=== PATIENT | male | born 1955 | race Caucasian/White ===

== ENCOUNTER 2017-10-08 09:49 | Emergency (ER) | payer MEDICAID, OTHER ==
[2017-10-08 09:55] VITALS: TEMP 98.4
--- NOTE | 2017-10-08 10:40 | EDPHY ---
H & P Stated Complaint: Frequency, hematuria, back pain Time Seen by Provider: 10/08/17 09:59 HPI/ROS: CHIEF COMPLAINT: Intermittent hematuria, urinary frequency, back pain HISTORY OF PRESENT ILLNESS: The patient has remote history of nephrolithiasis. He presents to the emergency department with several weeks of intermittent hematuria. The patient is also had some back pain. The patient denies fever, vomiting or additional complaints. The patient states he has improved since arriving in the emergency department. The patient does have a history of bipolar mood disorder which is currently well controlled. REVIEW OF SYSTEMS: A comprehensive 10 point review of systems is otherwise negative aside from elements mentioned in the history of present illness. Source: Patient Exam Limitations: No limitations - Medical/Surgical History Hx Asthma: No Hx Chronic Respiratory Disease: No Hx Diabetes: No Hx Cardiac Disease: No Hx Renal Disease: No Hx Cirrhosis: No Hx Alcoholism: No Hx HIV/AIDS: No Hx Splenectomy or Spleen Trauma: No Other PMH: VASECTOMY/KIDNEY STONES - Social History Smoking Status: Never smoked - Physical Exam Exam: General Appearance: Alert, no distress Eyes: Pupils equal and round no pallor or injection ENT, Mouth: Mucous membranes moist Respiratory: There are no retractions, lungs are clear to auscultation Cardiovascular: Regular rate and rhythm Gastrointestinal: Abdomen is soft and nontender, no masses, bowel sounds normal Back: Mild right CVA tenderness Neurological: A&O, normal motor function, normal sensory exam, normal cranial nerves Skin: Warm and dry, no rashes Musculoskeletal: Neck is supple nontender Extremities: symmetrical, full range of motion Constitutional: Initial Vital Signs Temperature (C) 36.9 C 10/08/17 09:52 Heart Rate 84 10/08/17 09:52 Respiratory Rate 16 10/08/17 09:52 Blood Pressure 107/83 H 10/08/17 09:52 O2 Sat (%) 97 10/08/17 09:52 O2 Delivery Mode Room Air Allergies/Adverse Reactions: Sulfa (Sulfonamide Antibiotics) Allergy (Verified 08/13/15 19:13) Home Medications: Medication Instructions Recorded levOFLOXACIN [Levaquin] 500 mg PO DAILY #10 tab 10/08/17 Medical Decision Making - Diagnostics Imaging Results: Imaging Impressions Abdomen/Pelvis CT 10/08/17 10:39 Impression: No anatomic recommendation for hematuria identified in this noncontrast scan. Findings and recommendations discussed with Heraclio Brownlee at 11:32 AM hour, 10/08/2017. Final report concurs with initial preliminary interpretation. Attention: This examination does not use radiographic contrast, and as such, provides only a limited evaluation of the abdomen, pelvis, and retroperitoneum. If there is further clinical suspicion for pathological conditions, a complete CT evaluation of the abdomen and pelvis utilizing intravenous, oral, and rectal contrast should be considered. ED Course/Re-evaluation: The patient presents to the ED for evaluation of back pain, urinary frequency and hematuria. The patient does have a history of nephrolithiasis. The patient has been having symptoms of frequency and dysuria over the past several weeks. The patient denies any complaints of acute abdominal pain. He had minimal tenderness on exam. The patient was taken for CT scan of the abdomen pelvis which demonstrates no evidence of obvious nephro or ureterolithiasis. The patient has a normal size prostate noted on that study. The patient is noted to have pyuria. A urine culture has been obtained. The patient is nontoxic and well-appearing without pyelonephritis. The patient will be put on Levaquin for the next 10 days. I am question whether he may have a low level of prostatitis given his urinary complaints. I would like the patient to follow up with our on-call urologist for a office based appointment in the next several weeks. The patient should return to the ED for any increasing pain, vomiting or other concerns. Differential Diagnosis: Differential diagnosis considered includes prostatitis, nephrolithiasis, ureterolithiasis, pyelonephritis, cystitis - Data Points Laboratory Results: Laboratory Results 10/08/17 11:10 10/08/17 11:10 10/08/17 10/08/17 10/08/17 11:10 11:10 10:30 WBC 10.25 10^3/uL H 10^3/uL (3.80-9.50) RBC 4.63 10^6/uL 10^6/uL (4.40-6.38) Hgb 14.9 g/dL g/dL (13.7-17.5) Hct 42.9 % % (40.0-51.0) MCV 92.7 fL fL (81.5-99.8) MCH 32.2 pg pg (27.9-34.1) MCHC 34.7 g/dL g/dL (32.4-36.7) RDW 12.6 % % (11.5-15.2) Plt Count 211 10^3/uL 10^3/uL (150-400) Sodium 140 mEq/L mEq/L (135-145) Potassium 4.2 mEq/L mEq/L (3.5-5.2) Chloride 103 mEq/L mEq/L (97-110) Carbon Dioxide 27 mEq/l mEq/l (22-31) Anion Gap 10 mEq/L mEq/L (8-16) BUN 21 mg/dL mg/dL (7-23) Creatinine 1.3 mg/dL mg/dL (0.7-1.3) Estimated GFR 56 Glucose 88 mg/dL mg/dL (70-100) Calcium 9.6 mg/dL mg/dL (8.5-10.4) Urine Color PALE YELLOW Urine Appearance CLEAR Urine pH 7.0 (5.0-7.5) Ur Specific Sherwood 1.005 (1.002-1.030) Urine Protein NEGATIVE (NEGATIVE) Urine Ketones NEGATIVE (NEGATIVE) Urine Blood 2+ H (NEGATIVE) Urine Nitrate NEGATIVE (NEGATIVE) Urine Bilirubin NEGATIVE (NEGATIVE) Urine Urobilinogen NEGATIVE EU EU (0.2-1.0) Ur Leukocyte Esterase 3+ H (NEGATIVE) Urine RBC 1-3 /hpf /hpf (0-3) Urine WBC 25-50 /hpf H /hpf (0-3) Ur Epithelial Cells NONE SEEN /lpf /lpf (NONE-1+) Urine Mucus TRACE /lpf /lpf (NONE-1+) Urine Glucose NEGATIVE (NEGATIVE) Departure - Departure Disposition: Home, Routine, Self-Care Clinical Impression: Prostatitis Condition: Good Instructions: Prostatitis (ED) Additional Instructions: 1. Please take antibiotics as directed for next 10 days. 2. You have no evidence of an obvious kidney stone but do have evidence of a bladder infection. This may be caused by some irritation of your prostate. 3. Please schedule a follow-up appointment with your primary care provider. I do recommend scheduling a follow-up appointment with urologist you have been referred to for a recheck in the next 1-2 weeks. 4. Please return to the ED for inability to urinate, high fever, increasing pain , vomiting or other concerns. Referrals: Lisa Griffith PA [Primary Care Provider] - As per Instructions Odalis Hubbard MD [Medical Doctor] - As per Instructions Prescriptions: levOFLOXACIN [Levaquin] 500 mg PO DAILY #10 tab
[2017-10-08 12:22] VITALS: BP 124/75; PULSE 69; RESP 18; O2SAT 96
== END 2017-10-08 12:19 | disposition home or self-care (01) ==
DX: N41.9 Inflammatory disease of prostate, unspecified (principal); B96.89 Other specified bacterial agents as the cause of diseases classified elsewhere

== ENCOUNTER → 2017-11-25 | Outpatient (CLI) | payer MEDICAID | LOC: FIMAGING 07:37 | PROVIDERS: ATTEND Physician Assistant Medical | DX: R41.3 Other amnesia (principal); F31.30 Bipolar disorder, current episode depressed, mild or moderate severity, unspecified; S06.0X9A Concussion with loss of consciousness of unspecified duration, initial encounter ==

== ENCOUNTER 2018-04-25 15:56 | Emergency (ER) | payer MEDICAID ==
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
[2018-04-25 17:19] VITALS: BP 137/84
== END 2018-04-25 17:19 | disposition home or self-care (01) ==
DX: R41.82 Altered mental status, unspecified (principal); R26.89 Other abnormalities of gait and mobility

== ENCOUNTER 2018-05-09 22:34 | Inpatient (IN) | payer MEDICAID, OTHER ==
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
[2018-05-09 23:34] LABS: PLATELET COUNT 214 10^3/uL (150-400)
[2018-05-10] MEDS ORDERED: LORazepam 1 MG TAB PO ONE (00:54)
[2018-05-10] MEDS ORDERED: ACETAMINOPHEN 500 MG TAB PO ONE (05:40)
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
--- NOTE | 2018-05-10 09:20 | ASMTTCLDSP ---
TLC Discharge Disposition Disposition: Answers: Admit Disposition Notes: Notes: Admit 3N. Discharge Concerns/Recommendations: Notes: In consultation with [facility] ED physician, Solange Warner MD and on-call psychiatrist, Renate Cutler MD, both concurred that pt appears to meet 27-65 criteria requiring psychiatric hospitalization as pt appears to be at risk of harm to self due to a mental illness condition. Pt was given the 3N prohibited belongings list while in the ED. Was patient given the Answers: Yes Inpatient Behavioral Health Prohibited Belongings List while in the ED? For inpatient Renate Cutler MD admission, the following psychiatrist agreed to accept patient for admission to Behavioral Health ([facility]): Type of Hold: Answers: M1/72-hour Hold Hold initiated by: Answers: ED Physician Date Signed: 05/10/2018 09:20 AM Electronically Signed By:Carlos Alberto Chan
[2018-05-10] MEDS ORDERED: MAG HYDROX/AL HYDROX/SIMETH 30 ML UDCUP PO PRN (13:53)
[2018-05-10] MEDS ORDERED: MAGNESIUM HYDROXIDE 30 ML UDCUP PO PRN (13:53)
[2018-05-10] MEDS ORDERED: NICOTINE POLACRILEX 2 MG GUM B PRN (13:53)
[2018-05-10] MEDS ORDERED: ACETAMINOPHEN 325 MG TAB PO PRN (13:53)
[2018-05-10] MEDS ORDERED: LORazepam 0.5 MG TAB PO PRN (13:53)
--- NOTE | 2018-05-10 14:06 | BCON ---
INTERNAL MEDICINE CONSULTATION DATE OF CONSULTATION: 05/10/2018 REFERRING PHYSICIAN: Renate Cutler MD REASON FOR REFERRAL: Medical clearance for inpatient behavioral health stay. HISTORY OF PRESENT ILLNESS: This patient came to the emergency department yesterday with his daughter and son. He had paranoia. He was homeless. He was evaluated by the mental health team and admitted for further psychiatric care. Today, he discusses his concern about having seizures. He describes these as periods of increased mental activity and anxiety, which can last up to 6 hours, following which, he has a decrease in mental activity and says he feels lightheaded and with impaired balance and needs to sit down. He reports he was given and risperidone by primary care provider 1 mg per day, which he took for 10 days and while he was taking it, these episodes were not happening to him. He is also concerned that he has loss of balance and difficulty moving the left side of his body, and he says that his sense of time has changed, and he gets much more involved in details and loses track of time. 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 He is, otherwise, without any acute complaints. PAST MEDICAL HISTORY: 1. Kidney stones. 2. Left hydrocele. 3. Prostatitis. 4. ADHD. 5. Bipolar disorder. MEDICATIONS: 1. Vyvanse 10 mg p.o. daily. 2. Lamotrigine 250 mg p.o. daily. 3. Gabapentin 200 mg p.o. t.i.d. 4. Recent prescription for risperidone 1 mg daily, which has run out. SOCIAL HISTORY: He is . He has 2 local children. He has a degree in geology. 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 He is a nonsmoker. He does not use alcohol. FAMILY HISTORY: Noncontributory, though he reported a history of mental health issues and Alzheimer disease. REVIEW OF SYSTEMS: He reports he had considerable weight gain recently in the past year, but he put himself on a ketogenic diet with very low carbohydrate intake, which resulted in considerable weight loss. He says he has a normal appetite. Otherwise, a 10-point review of systems is negative. PHYSICAL EXAM: VITAL SIGNS: Blood pressure is 118/76, heart rate is 75, respiratory rate is 14, oxygen saturation is 95% on room air, temperature is 36.6 degrees centigrade. His weight is 68 kg for a body mass index of 22.2. GENERAL: This is a well-nourished, well-developed man, appears his chronologic age cooperative and in no acute distress. HEENT: Extraocular movements are intact. Pupils are equal, round, and reactive to light. Mucous members are moist. Dentition is in good condition. He has an uncrowded airway, Mallampati class 1. NECK: Supple. HEART: Regular rate and rhythm with no murmurs, rubs , or gallops. LUNGS: Clear to auscultation bilaterally. ABDOMEN: Benign. NEUROLOGIC: He is alert and oriented x3. He is verbose. He has full faces. Cranial nerves 2-12 are grossly intact. There is no focal weakness. Sensation is intact to light touch. Deep tendon reflexes are 2+ bilaterally at the biceps , patellar, and Achilles tendons. There is no pronator drift. There is no rigidity. There is no bradykinesia, and gait is within normal limits. LABORATORY STUDIES: From the emergency department: CBC was completely within normal limits. Serum chemistry revealed normal renal function and electrolytes. There was a mild elevation of glucose at 114, but this was likely not fasting. Toxicology screen in the serum was negative for ethyl alcohol and the urine was non-negative for marijuana, but otherwise negative for substances of abuse. ASSESSMENT/RECOMMENDATIONS: 1. Mental health issues. Pending further evaluation and management per Psychiatry and the mental health team. 2. Transient alterations of consciousness. These do not seem consistent with seizures. He has an EEG scheduled for this Sunday, May 13, 2018, and I think it is important that he goes to that appointment as the EEG result will help clarify his question regarding seizures. He has had normal MRI x2. 3. Question of movement disorder. He does not appear to have any movement disorder on my exam. After his EEG, it would be reasonable for him to follow up with Neurology regarding both the question of seizure and the question of movement disorder. It seems likely to me that these may be psychogenic symptoms that would improve with stabilization of his psychiatric condition. Will order orthostatic blood pressure and pulse X 1 and PRN symptoms. 4. Recent weight loss. He reports this is volitional, but given weight loss and possible exacerbation of bipolar disorder, I will add a TSH onto the labs that were drawn in the emergency department to rule out thyroid abnormality contributing to his symptoms. I see no medical contraindications to this patient's continued stay on the inpatient behavioral health unit or to any psychiatric medications or procedures. Thank you very much for including me in the care of this patient and please do not hesitate to contact me or the hospitalist service should there be need for further medical evaluation. /[id number]/MODL MTDD
--- NOTE | 2018-05-10 14:54 | PDMN ---
Medical Necessity Medical necessity: Pt meets IP criteria per MD and [facility]; est los > 2 mn for eval and tx of Bipolar I with psychotic features; pt on M1 hold requiring further monitoring, safety, crisis stabilization, med management. Hx homelessness Per CM consult and order 05/10/18
[2018-05-10] MEDS ORDERED: risperiDONE 0.5 MG TAB PO PRN (17:18)
[2018-05-10] MEDS ORDERED: risperiDONE 1 MG TAB PO SCH (21:00)
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
--- NOTE | 2018-05-11 11:50 | ASMTBHMTP ---
Master Treatment Plan Master Treatment Plan Answers: Impaired Reality for: Date: 05/11/2018 Diagnosis on Admission: Bipolar I Disorder, current or most recent episode manic, with psychotic features 296.54 (F31.5) Expected length of stay: 5-7 Reason for admission: Notes: The patient reported that he "ran out" of his Risperidone on a trip to the [facility]. 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 The patient was utilizing his benefit of staying in the [facility] lodge near [place], [place]. The patient reported that he purchased and used CBD oil to substitute for his Risperidone. He returned to [place] and met with his family at his son's home. The patient's children and ex- were concerned about his paranoid ideation and supported him in coming to [facility] ED for further evaluation. The patient reported that he was being followed and that someone is trying to murder him; he feared that he may have endangered his family by coming to their home. Patient's stated presenting problems: Notes: The patient reoprted that he has seizures in which "time blocks out" and he can't remember. The patient referred to this as an "instantaneous black out" and stated that it "erases periods of memory." The patient stated that he felt like he had been on [facility] for "a week;" the patient was admitted yesterday [05/10/18]. The patient reported a diagnostic history of Bipolar Disorder. The patient is treated outpatient by [facility]. Patient's goals for treatment: Notes: The patient stated, "To be released." Patient's strengths: Notes: The patient stated, "My perception of mylsef in context of where I am and what's going on." Identify supports outside of hospital: Notes: The patient is supported by his family including his daughter, Mercy, his son, Dante, and his ex-. He reported having relatives and friends in in the area as well. Discharge criteria: Notes: Psychotic symptoms will be reduced or eliminated with return to baseline functioning in affect, thinking, and behavior prior to discharge. Initial disposition plan/considerations: Notes: The patient plans to return to his home and job at [employer] in [place], [place] upon discharge. Master Treatment Plan Required Signatures Psychiatrist signature: Answers: Renate Cutler MD: RN on-shift signature: Answers: RN: Patient signature: Answers: Patient: Date Signed: 05/11/2018 11:49 AM Electronically Signed By:Alethea Murguia
--- NOTE | 2018-05-11 12:15 | SOAPPROG ---
SOAP Progress Note Assessment/Plan: Assessment: 62yo with BMD since , incr manic over past month with psychosis/paranoia prior to admission. reports med compliant until couple days prior to admission and used CBD oil. Utox +THC. this is his first psychiatric hospitalization Plan: 05/11/18 12:16 Pt seen in treatment planning today, reports very appreciative of being brought to hospital by his son and daughter who really care about him. States no problems with restarting Risperdal. Had run out of his medications a couple of days before admission, including Gabapentin, Lamictal, and Risperdal, also had obtained CBD oil in the meantime since out of meds. Reports occasionally having seizures, which have variably been described as questionably mental health in origin (racing thoughts so fast, then slowed to point of not being able to answer/respond to others and losing time) but also as questionably neurologic and has outpatient work-up in progress, reporting scheduled for EEG at end of this week, and that his understanding was that his seizures were not typical. Discussed medication options and need to resume mood stabilizer. Denies s/e to Risperdal 1mg hs. MSE: Casually dressed, readily engaging, smiling, good eye contact, speech articulate. Was with incr rate speech but not pressured and not uninterruptible. + overinclusive with detail, and affect was hypomanic, very bright, optimistic, appreciative, complimentary. Mood "good", affect full. Denies any AH/VH, did not express delusional thoughts or any paranoia. Denied any SI or thoughts to harm others. Expressed good insight into having BMD and needing medications. Cognition intact. Talked of his several manic sxs over the years, including getting involved with relationships during those times, "and my children were a product of manic episiodes, they know that". Added that his sister is also in treatment with same psychiatrist for Bipolar mood and stable on Depakote, Geodon, and he manages her finances. Admits he bought a $35K car prior to admission, " my daughter tells me every time I get manic I buy a new car". Pt reports 2 years stable on Lamictal and Gabapentin, and that he asked PCP for Risperdal 1mg to be restarted a couple of weeks ago for emerging manic sxs. Does maintain he still wants to continue with CBD for his michelle and what he thinks are seizure symptoms. Has taken Depakote in the past. took for 1 yr in 2012, but states he got depressed and stayed depressed after going off it. does not know dose of if he was in therapeutic range. denied having any other adverse effects. admits feeling his symptoms feel more like rapid cycling in recent years. PLAN: -agreed to start Depakote ER 1000mg tonight. risks/benefits reviewed. pt consented to treatment. has been on it in 2013, not sure of dose. sister stable on this med he states, and likes that it is also and antiepileptic med. -wants to not take Risperdal scheduled if starting Depakote. thinks it gave him a headache this am. Will change to 0.5mg bid prn, but schedule if with any evidence of psychosis -gave permission to call PCP and outpt psychiatrist Dr. Salinas for collateral. -cont M-1 Objective: Vital Signs Temp Pulse Resp BP Pulse Ox 36.5 C 79 16 121/78 H 95 05/11/18 06:00 05/11/18 06:00 05/11/18 06:00 05/11/18 06:00 05/11/18 06:00 - Pending Discharge Pending Discharge Within 24 Hours: No Pending Discharge Within 48 Hours: No ICD10 Worksheet Patient Problems: Problems Problem Status Onset Bipolar disorder Acute
[2018-05-11] MEDS ORDERED: risperiDONE 0.5 MG TAB PO PRN (16:28)
[2018-05-11] MEDS ORDERED: LORazepam 2 MG/ML INJ IM PRN (20:35)
[2018-05-11] MEDS ORDERED: OLANZapine 10 MG/2 ML VIAL IM PRN (20:35)
--- NOTE | 2018-05-11 20:47 | PDCONSULT ---
Fish Pitcher Note: MD electronics repair technician was alerted to fact that patient became aggressive, hostile and threatening toward staff and peers during group therapy tonight. Staff attempted to redirect and de-escalate patient, however, he refused to cooperate with staff and started verbally threatening staff and swinging his arms at staff per report. Staff had to physically manage patient and remove him from group room to seclusion room. MD ordered E-meds including Olanzapine 10mg PO QHS with IM PRN if patien refuses PO, as well as Ativan 1mg PO BID with IM PRN if patient refuses PO. Patient also has Depakote 1,000mg QHS ordered which he refused to take tonight per staff.
[2018-05-11] MEDS ORDERED: OLANZapine DISINTEGR 10 MG TAB PO SCH (21:00)
[2018-05-11] MEDS ORDERED: DIVALPROEX ER 500 MG TAB PO SCH (21:00)
[2018-05-11] MEDS: LORazepam 1 MG TAB PO SCH (21:19)
[2018-05-12] MEDS: LORazepam 1 MG TAB PO SCH (08:20)
--- NOTE | 2018-05-12 11:35 | ASMTCMCOM ---
CM Note CM Note Notes: According to [facility] staff, the patient was secluded in the evening 05/11/18. He reported that he misperceived a statement from staff. The patient has been observed expressing his resistance to treatment in the milieu to staff and peers. He slept 6.5 hours overnight and completed 50% or more of his meals on 05/11/18. He refused his scheduled medication: Depakote. Date Signed: 05/12/2018 11:34 AM Electronically Signed By:Alethae Murguia
--- NOTE | 2018-05-12 15:37 | ASMTBHDC ---
Notes Note: Notes: CC tentatively set up [facility] appt for client (date and time can be changed) Follow up with: [facility] [address] [place] [address] ([address] Floor) [place] [address] Coordinate Appt: WednesdayMay 18 (05/18/18) at 2:30pm with Shayy. Date Signed: 05/12/2018 03:36 PM Electronically Signed By:Anthony Hernandez
[2018-05-12] MEDS: DIVALPROEX ER 500 MG TAB PO SCH ×2 (16:03→19:59)
[2018-05-12] MEDS: risperiDONE 1 MG TAB PO SCH (19:59)
[2018-05-12] MEDS: OLANZapine DISINTEGR 5 MG TAB PO PRN (20:28)
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
[2018-05-13] MEDS: OLANZapine DISINTEGR 5 MG TAB PO PRN (02:06)
[2018-05-13] MEDS: risperiDONE 1 MG TAB PO SCH ×2 (08:30→20:25)
[2018-05-13] MEDS: DIVALPROEX ER 500 MG TAB PO SCH ×2 (08:30→20:25)
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
[2018-05-13] MEDS ORDERED: risperiDONE 0.25 MG TAB PO PRN (10:09)
[2018-05-13] MEDS ORDERED: BENZTROPINE MESYLATE 1 MG TAB PO PRN (10:12)
[2018-05-13] MEDS ORDERED: LORazepam 0.5 MG TAB PO PRN (10:13)
[2018-05-14] MEDS: risperiDONE 1 MG TAB PO SCH ×2 (08:24→20:31)
[2018-05-14] MEDS: DIVALPROEX ER 500 MG TAB PO SCH ×2 (08:25→20:32)
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
--- NOTE | 2018-05-14 18:27 | SOAPPROG ---
SOAP Progress Note Assessment/Plan: Assessment: Per Dr. Cutler' notes: 62yo with BMD since 1989' , incr manic over past month despite reported med compliance, becoming paranoid/psychotic prior to admission, and brought in by his concerned kids. michelle has led to his job loss and purchase of new car in [place]; reports med compliant until ran out of meds 2 days prior to admission and used CBD oil. Utox +THC. this is his first psychiatric hospitalization. 05/13/18 09:09 states he slept until 2am, then up for a while before returning to sleep. took depakote risperdal last night, and at 2am given zyprexa 10 and ativan 1mg po as prn. +making hiccup sounds throughout interview, which start after being asked about his medications, "could that be a side effect?". hiccups not noted while sitting in group quietly prior to interview, nor by staff yesterday afternoon. only after asked how tolerating meds and if any s/e. states he has had hiccups now incessantly x 24hr. (not present yesterday) later states hiccups started after took AM meds, also tongue "feels swollen, it' s hard to pronounce words" and mind feels foggy, "my brain is fairly inactive today", and feels "brain seizure is coming back right now, when I lean forward I feel a little dizzy, and when I stand up". and feels L side has slight tremor (+fine intention tremor on L noted). denies racing thoughts presently. reporting periods of confusion. staff states he did not recall being placed on STC despite engaged and expressed understanding but not happy with that plan yesterday. when took stimulant med Rxd by PCP after testing at [facility] dxd pt with ADHD 11/2017 , pt reports the med "shot my mental activity straight to the top, then I crash lower" than the low he typically got after a manic episode. this was earlier in summer 2017. ?relation to timing of onset of current manic episode? MSE: casually dressed. bearded, graying hair, glasses, nml psychom activity. no evidence clinically of EPS incl any difficulty with speech or articulation. hyperverbal but with somatic preoccupations instead of injustices of peers all being hospitalized. affect full. mood "fine", thinks ready for d/c. less grandiose. delusions seem present and manifest in his various physical complaints. started hiccuping only after asked about med effects overnight, and continued making such sounds throughout interview unless distracted. no SI. denied AH/VH. reports thoughts not racing today. DX: BMD I, manic, acute, with psychotic f. recent dx of ADHD THC use d/o, unspecified PLAN: 1. Incr Depakote to 500mg qam, 1000mg qhs, for better loading dose.check level early next week. 2. Cont Risperdal 1mg bid, add 0.5mg bid prn for psychosis. Using Risperdal b/c pt familiar with this med and reports hx of +response. 3. D/c zyprexa prn to simplify regimen and better assess effects and response to meds. 4. Increase Ativan from 0.5-1mg to 1-2mg q6hr prn for anxiety/agitation. add cogentin 1mg bid prn EPS. 5. Cont on STC CURRENT PLAN: 05/14/18 18:24 1. Patient has responded well to increased dose of VPA. Denies any SE's, no physical complaints. 2. Continue with Risperdal to address psychosis, agitation, mood lability. 3. Will need VPA level checked next week prior to d/c. 4. F/U with [facility] or [facility] Subjective: Patient was c/o physical sxs including swollen tongue and fuzzy headedness to Dr. Cutler on Wednesday. Today, he denies these complaints. He told staff he had "best sleep" last night and felt very rested. He presents as linear and goal- directed, and denies any AH/VH. He has told several staff that he still feels like people are following him, but denies thinking anyone is trying to hurt him. Says he feels safe on unit. observed patient while he was in group therapy, and he did not appear to be in any distress. He was calm, appropriate and pleasant. Objective: Vital Signs Temp Pulse Resp BP Pulse Ox 36.4 C 67 16 119/73 96 05/14/18 00:30 05/14/18 16:00 05/14/18 16:00 05/14/18 16:00 05/14/18 16:00 MSE: Affect: Calm Mood: "OK" TP: Linear TC: Denies any SI/HI Insight/ Judgment: Improving - Time Spent With Patient Time Spent With Patient: 15" - Pending Discharge Pending Discharge Within 24 Hours: No Pending Discharge Within 48 Hours: No ICD10 Worksheet Patient Problems: Problems Problem Status Onset Bipolar disorder Acute
[2018-05-15] MEDS: risperiDONE 1 MG TAB PO SCH ×2 (08:21→20:09)
[2018-05-15] MEDS: DIVALPROEX ER 500 MG TAB PO SCH ×2 (08:21→20:08)
--- NOTE | 2018-05-15 17:24 | SOAPPROG ---
SOAP Progress Note Assessment/Plan: Assessment: Per Dr. Cutler' notes: 62yo with BMD since 1989' , incr manic over past month despite reported med compliance, becoming paranoid/psychotic prior to admission, and brought in by his concerned kids. michelle has led to his job loss and purchase of new car in [place]; reports med compliant until ran out of meds 2 days prior to admission and used CBD oil. Utox +THC. this is his first psychiatric hospitalization. 05/13/18 09:09 states he slept until 2am, then up for a while before returning to sleep. took depakote risperdal last night, and at 2am given zyprexa 10 and ativan 1mg po as prn. +making hiccup sounds throughout interview, which start after being asked about his medications, "could that be a side effect?". hiccups not noted while sitting in group quietly prior to interview, nor by staff yesterday afternoon. only after asked how tolerating meds and if any s/e. states he has had hiccups now incessantly x 24hr. (not present yesterday) later states hiccups started after took AM meds, also tongue "feels swollen, it' s hard to pronounce words" and mind feels foggy, "my brain is fairly inactive today", and feels "brain seizure is coming back right now, when I lean forward I feel a little dizzy, and when I stand up". and feels L side has slight tremor (+fine intention tremor on L noted). denies racing thoughts presently. reporting periods of confusion. staff states he did not recall being placed on STC despite engaged and expressed understanding but not happy with that plan yesterday. when took stimulant med Rxd by PCP after testing at [facility] dxd pt with ADHD 11/2017 , pt reports the med "shot my mental activity straight to the top, then I crash lower" than the low he typically got after a manic episode. this was earlier in summer 2017. ?relation to timing of onset of current manic episode? MSE: casually dressed. bearded, graying hair, glasses, nml psychom activity. no evidence clinically of EPS incl any difficulty with speech or articulation. hyperverbal but with somatic preoccupations instead of injustices of peers all being hospitalized. affect full. mood "fine", thinks ready for d/c. less grandiose. delusions seem present and manifest in his various physical complaints. started hiccuping only after asked about med effects overnight, and continued making such sounds throughout interview unless distracted. no SI. denied AH/VH. reports thoughts not racing today. DX: BMD I, manic, acute, with psychotic f. recent dx of ADHD THC use d/o, unspecified PLAN: 1. Incr Depakote to 500mg qam, 1000mg qhs, for better loading dose.check level early next week. 2. Cont Risperdal 1mg bid, add 0.5mg bid prn for psychosis. Using Risperdal b/c pt familiar with this med and reports hx of +response. 3. D/c zyprexa prn to simplify regimen and better assess effects and response to meds. 4. Increase Ativan from 0.5-1mg to 1-2mg q6hr prn for anxiety/agitation. add cogentin 1mg bid prn EPS. 5. Cont on STC CURRENT PLAN: 05/14/18 18:24 1. Patient has responded well to increased dose of VPA. Denies any SE's, no physical complaints. 2. Continue with Risperdal to address psychosis, agitation, mood lability. 3. Will need VPA level checked next week prior to d/c. 4. F/U with [facility] or [facility] PLAN: 05/15/18 17:21 1. Continues to take meds and deny any SE's or complaints. 2. Staff report patient has been much more cooperative, pleasant and social than earlier in week. No further incidents of irritability or aggression last witnessed on 05/11/18. 3. Patient has f/u at [facility] on 05/18/18. Subjective: Patient presents calm, pleasant, euthymic. He occasionally smiles and engages with peers and staff. He has attended all groups this w/e, and is an active participant. He denies any paranoid delusions and reports no psychotic sxs of any kind. Objective: Vital Signs Temp Pulse Resp BP Pulse Ox 36.3 C 79 17 131/75 H 96 05/15/18 07:03 05/15/18 16:00 05/15/18 16:00 05/15/18 16:00 05/15/18 16:00 MSE: Affect: Calm, euthymic Mood: "Good" TP: Linear TC: Denies any SI/HI Insight/Judgment: Improved - Time Spent With Patient Time Spent With Patient: 15" - Pending Discharge Pending Discharge Within 24 Hours: No Pending Discharge Within 48 Hours: No ICD10 Worksheet Patient Problems: Problems Problem Status Onset Bipolar disorder Acute
[2018-05-16] MEDS: DIVALPROEX ER 500 MG TAB PO SCH ×2 (08:46→18:12)
[2018-05-16] MEDS: risperiDONE 1 MG TAB PO SCH ×2 (08:46→21:00)
--- NOTE | 2018-05-16 13:40 | ASMTBHDC ---
Notes Note: Notes: The patient participated in clinical treatment team rounds. He was appropriate and cooperative. He reported some ambivalence about continuing to stay in the hospital as treatment has been helpful but involuntary. He plans to discharge tomorrow. He has a follow up appointment scheduled with P in [place]. Date Signed: 05/16/2018 01:39 PM Electronically Signed By:Alethea Murguia
[2018-05-17 06:44] VITALS: BP 127/68
--- NOTE | 2018-05-17 09:28 | SOAPPROG ---
SOAP Progress Note Assessment/Plan: Assessment: Plan: 05/17/18 09:30 Mood/psychosis: Much improved. Will CCM. Likely d/c tomorrow if sleep and mood remain stable. Subjective: LATE ENTRY FOR 05/16/18. Pt seen, discussed with staff, chart reviewed. He is a 62 y/o CM with hx of mood d/o and psychosis. Additional hx indicates temporal relationship of psychosis to use of amphetamines. Pt much clearer today. Interviewed in Treatment Team meeting. Upbeat and hopeful about the future. States he is relieved by decision to allow his children to help him in several important areas of life, e.g. finances. Remains compliant with meds. No SE's noted. Sleeping well. Objective: Vital Signs Temp Pulse Resp BP Pulse Ox 35.7 C L 74 14 127/68 H 97 05/17/18 06:44 05/17/18 06:44 05/17/18 06:44 05/17/18 06:44 05/17/18 06:44 MSE: Well-groomed, pleasant and cooperative. Affect is euthymic, smiling, appropriate, stable. Mood is "good." TP is generally linear, though tends to wander if not redirected. TC reveals no evidence of paranoia. Voices no SI/HI/ . - Time Spent With Patient Time Spent With Patient: 25" ICD10 Worksheet Patient Problems: Problems Problem Status Onset Bipolar disorder Acute
[2018-05-17] MEDS: DIVALPROEX ER 500 MG TAB PO SCH (10:59)
[2018-05-17] MEDS: risperiDONE 1 MG TAB PO SCH (11:06)
[2018-05-17] MEDS ORDERED: risperiDONE 1 MG TAB PO SCH (21:00)
== END 2018-05-17 15:10 | disposition home or self-care (01) | DRG 885 ==
LOC: BBEH 05-10 11:30
PROVIDERS: ADMIT Psychiatry & Neurology Behavioral Neurology & Neuropsychiatry; ATTEND Psychiatry & Neurology Behavioral Neurology & Neuropsychiatry
DX: F31.2 Bipolar disorder, current episode manic severe with psychotic features (principal); F90.9 Attention-deficit hyperactivity disorder, unspecified type; Z59.0 Homelessness; Z87.442 Personal history of urinary calculi
CPT/HCPCS: 80305; G0480; J2060

== ENCOUNTER → 2018-06-22 | Outpatient (CLI) | payer MEDICAID ==
--- NOTE | 2018-06-24 10:41 | CPEEG ---
ROUTINE EEG DATE OF STUDY: 06/22/2018 DATE OF INTERPRETATION: 06/24/2018 INTERPRETATION: Normal EEG during wakefulness and sleep. There were no potentially epileptogenic ab normalities present during the recording. REPORT: This EEG contains 10 Hz alpha activity over the posterior head regions. The background acti vity was normal and symmetric. There was no abnormal activation at rest, during photic stimulation o r hyperventilation. The patient intermittently became drowsy and fell asleep briefly during the stud y. There was no abnormal activation during drowsiness, sleep, or during times of arousal. /[id number]/MODL
== END ==
LOC: FCPNEURO 07:46
PROVIDERS: ATTEND Physician Assistant Medical
DX: R41.3 Other amnesia (principal); S06.0X9A Concussion with loss of consciousness of unspecified duration, initial encounter